=== PATIENT | female | born 1990 | race Caucasian/White ===

== ENCOUNTER 2016-11-09 12:37 | Emergency (ER) | payer OTHER ==
[2016-11-09 13:00] VITALS: BP 118/78
[2016-11-09] MEDS ORDERED: Ibuprofen TAB* 400 MG PO ONE (13:22)
--- NOTE | 2016-11-09 13:32 | UC ---
FLU HPI - HPI Summary HPI Summary: FEVER COUGH AND BODY ACHES FOR TWO DAYS. NO FLU SHOT THIS YEAR. 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 - History of Current Complaint Chief Complaint: UCRespiratory Stated Complaint: FEVER,COUGH Time Seen by Provider: 11/09/16 13:14 Hx Obtained From: Patient Hx Last Menstrual Period: does not get Onset/Duration: Sudden Onset, Lasting Days, Still Present Severity Currently: Moderate Severity Initially: Moderate Associated Signs & Symptoms: Positive: Fever, F/C, Myalgia, Cough, Sore Throat, Nasal Congestion Related Hx: Possible Flu/Infectious Exposure - Allergy/Home Medications Allergies/Adverse Reactions: Allergies Allergy/AdvReac Type Severity Reaction Status Date / Time Minocycline Allergy Intermediate Hives Verified 11/09/16 13:00 PMH/Surg Hx/FS Hx/Imm Hx Previously Healthy: Yes - Surgical History Surgical History: Yes Surgery Procedure, Year, and Place: APPENDECTOMY - Family History Known Family History: Positive: None Negative: Cardiac Disease, Respiratory Disease Family History: no cadiac issues in family lineage - Social History 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 Lives: With Family Alcohol Use: Occasionally Substance Use Type: None Smoking Status (MU): Never Smoked Tobacco Review of Systems Constitutional: Fever, Chills, Fatigue Skin: Negative Eyes: Negative ENT: Sore Throat, Ear Ache, Nasal Discharge Respiratory: Cough Cardiovascular: Negative Gastrointestinal: Negative Genitourinary: Negative Motor: Negative Neurovascular: Negative Musculoskeletal: Negative Neurological: Negative Psychological: Negative All Other Systems Reviewed And Are Negative: Yes Physical Exam Triage Information Reviewed: Yes Appearance: No Pain Distress, Well-Nourished, Ill-Appearing - MILD Vital Signs: Initial Vital Signs Temp 99.9 F 11/09/16 12:57 Pulse 136 11/09/16 12:57 Resp 24 11/09/16 12:57 BP 118/78 11/09/16 12:57 Pulse Ox 100 11/09/16 12:57 Vital Signs Reviewed: Yes Eye Exam: Normal Eyes: Positive: Conjunctiva Clear ENT Exam: Normal ENT: Positive: Normal ENT inspection, Hearing grossly normal, Pharynx normal, TMs normal Dental Exam: Normal Neck exam: Normal Neck: Positive: Supple, Nontender, No Lymphadenopathy Respiratory Exam: Normal Respiratory: Positive: Chest non-tender, Lungs clear, Normal breath sounds, No respiratory distress, No accessory muscle use Cardiovascular Exam: Normal Cardiovascular: Positive: RRR, No Murmur, Pulses Normal Abdominal Exam: Normal Abdomen Description: Positive: Nontender, No Organomegaly Musculoskeletal Exam: Normal Neurological Exam: Normal Psychological Exam: Normal Psychological: Positive: Normal Response To Family Skin Exam: Normal Flu Course/Dx - Differential Dx/Diagnosis Differential Diagnosis/HQI/PQRI: Influenza, Upper Respiratory Infection Provider Diagnoses: INFLUENZA A Discharge - Discharge Plan Condition: Stable Disposition: HOME Prescriptions: Oseltamivir CAP* [Tamiflu CAP*] 75 mg PO BID #10 cap Patient Education Materials: Influenza (ED) Forms: *Work Release Referrals: [facility] [Outside] Non Staff,Doctor [Primary Care Provider] -
== END 2016-11-09 13:32 | disposition home or self-care (01) ==
LOC: UCCORT 12:37
DX: J09.X2 Influenza due to identified novel influenza A virus with other respiratory manifestations (principal); Z88.1 Allergy status to other antibiotic agents
CPT/HCPCS: 87502; 99212; A9270-GY; G0463

== ENCOUNTER 2017-01-22 18:21 | Emergency (ER) | payer OTHER ==
[2017-01-22 19:27] VITALS: BP 116/74
--- NOTE | 2017-01-22 19:33 | UC ---
Complaint Female HPI - HPI Summary HPI Summary: Dysuria, frequency, urgency, hematuria starting at 0300 today. Hx of UTIs, this feels just like it. - History Of Current Complaint Chief Complaint: UCGU Stated Complaint: URINARY Time Seen by Provider: 01/22/17 19:18 Hx Obtained From: Patient Hx Last Menstrual Period: DOES NOT HAVE REGULAR PERIODS, HAS MRKG ?: No Onset/Duration: Sudden Onset, Lasting Hours Timing: Constant Severity Initially: Moderate Severity Currently: Moderate Radiates to: low back Character: Burning, Cramping Aggravating Factor(s): Urination Associated Signs And Symptoms: Positive: Negative - Allergies/Home Medications Allergies/Adverse Reactions: Allergies Allergy/AdvReac Type Severity Reaction Status Date / Time Minocycline Allergy Intermediate Hives Verified 01/22/17 19:18 Home Medications: Home Medications Phenazopyridine HCl [Azo Urinary Pain Relief] 95 mg PO PRN 01/22/17 [History] PMH/Surg Hx/FS Hx/Imm Hx Previously Healthy: Yes - Surgical History Surgical History: Yes Surgery Procedure, Year, and Place: APPENDECTOMY - Family History Known Family History: Positive: None Negative: Cardiac Disease, Respiratory Disease Family History: no cadiac issues in family lineage - Social History Alcohol Use: Occasionally Substance Use Type: None Smoking Status (MU): Never Smoked Tobacco Review of Systems Constitutional: Negative Skin: Negative Eyes: Negative ENT: Negative Respiratory: Negative Cardiovascular: Negative Gastrointestinal: Negative Genitourinary: Dysuria, Hematuria, Frequency, Urgency Motor: Negative Neurovascular: Negative Musculoskeletal: Negative Neurological: Negative Psychological: Negative All Other Systems Reviewed And Are Negative: Yes Physical Exam Triage Information Reviewed: Yes Appearance: Well-Appearing, No Pain Distress, Obese Vital Signs: Initial Vital Signs Temp 97.9 F 01/22/17 19:20 Pulse 99 01/22/17 19:20 Resp 17 01/22/17 19:20 BP 116/74 01/22/17 19:20 Pulse Ox 98 01/22/17 19:20 Vital Signs Reviewed: Yes Eye Exam: Normal Eyes: Positive: Conjunctiva Clear ENT Exam: Normal ENT: Positive: Normal ENT inspection, Hearing grossly normal, Pharynx normal, TMs normal Dental Exam: Normal Neck exam: Normal Neck: Positive: Supple, Nontender, No Lymphadenopathy Respiratory Exam: Normal Respiratory: Positive: Chest non-tender, Lungs clear, Normal breath sounds, No respiratory distress, No accessory muscle use Cardiovascular Exam: Normal Cardiovascular: Positive: RRR, No Murmur Abdomen Description: Negative: CVA Tenderness (R), CVA Tenderness (L) Musculoskeletal Exam: Normal Neurological Exam: Normal Neurological: Positive: Alert Psychological Exam: Normal Skin Exam: Normal Complaint Female Dx - Differential Dx/Diagnosis Provider Diagnoses: UTI Discharge - Discharge Plan Condition: Stable Disposition: HOME Prescriptions: Nitrofurantoin Monohyd Macro [Macrobid] 100 mg PO BID #10 cap Patient Education Materials: Urinary Tract Infection in Women (ED) Referrals: Non Staff,Doctor [Primary Care Provider] -
== END 2017-01-22 19:40 | disposition home or self-care (01) ==
LOC: UCCORT 18:21
DX: N39.0 Urinary tract infection, site not specified (principal); R31.9 Hematuria, unspecified; Z87.440 Personal history of urinary (tract) infections; Z88.1 Allergy status to other antibiotic agents; E66.9 Obesity, unspecified
CPT/HCPCS: 81003; 87086; 99212; G0463

== ENCOUNTER 2017-03-01 15:42 | Emergency (ER) | payer SELFPAY ==
[2017-03-01] MEDS ORDERED: Ibuprofen TAB* 600 MG PO ONE (16:36)
[2017-03-01] MEDS ORDERED: Lidocaine 2% PF * 5 ML VIAL INJ ONE (16:36)
--- NOTE | 2017-03-01 16:42 | UC ---
Laceration HPI - HPI Summary HPI Summary: patient cut herself with an exacto knife doing a craft on the palm of the left hand, 4 cm cut - History Of Current Complaint Stated Complaint: LEFT HAND LAC Time Seen by Provider: 03/01/17 16:32 Hx Obtained From: Patient Laceration Location: Hand Mechanism Of Injury: Sharp Trauma Onset/Duration: Sudden Onset, Lasting Hours Severity: Severe Aggravating Factors: Position, Movement - Allergies/Home Medications Allergies/Adverse Reactions: Allergies Allergy/AdvReac Type Severity Reaction Status Date / Time Minocycline Allergy Intermediate Hives Verified 03/01/17 16:50 PMH/Surg Hx/FS Hx/Imm Hx Previously Healthy: Yes - Surgical History Surgical History: Yes Surgery Procedure, Year, and Place: APPENDECTOMY - Family History Known Family History: Positive: None Negative: Cardiac Disease, Respiratory Disease Family History: no cadiac issues in family lineage - Social History Alcohol Use: Occasionally Substance Use Type: None Smoking Status (MU): Never Smoked Tobacco Review of Systems Constitutional: Negative Skin: Other - laceration Eyes: Negative ENT: Negative Respiratory: Negative Cardiovascular: Negative Gastrointestinal: Negative Genitourinary: Negative Motor: Negative Neurovascular: Negative Musculoskeletal: Negative Neurological: Negative Psychological: Negative All Other Systems Reviewed And Are Negative: Yes Physical Exam Triage Information Reviewed: Yes Appearance: Well-Appearing, Well-Nourished, Pain Distress Vital Signs Reviewed: Yes Eye Exam: Normal Eyes: Positive: Conjunctiva Clear ENT Exam: Normal ENT: Positive: Hearing grossly normal, Pharynx normal, TMs normal Dental Exam: Normal Neck exam: Normal Neck: Positive: Supple, Nontender, No Lymphadenopathy Respiratory Exam: Normal Respiratory: Positive: Chest non-tender, Lungs clear, Normal breath sounds Cardiovascular Exam: Normal Cardiovascular: Positive: RRR, No Murmur, Pulses Normal Abdominal Exam: Normal Abdomen Description: Positive: Nontender, No Organomegaly, Soft Bowel Sounds: Positive: Present Musculoskeletal Exam: Normal Musculoskeletal: Positive: Strength Intact, ROM Intact, No Edema Neurological Exam: Normal Neurological: Positive: Alert, Muscle Tone Normal Psychological: Positive: Other: - anxoius Skin: Positive: Other - 4 cm laceration of the thenar eminence, Laceration Repair - Laceration Repair 1 Description: Linear : No Repair Necessary Laceration Size After Repair: Length (cm) - 4 cm Modified For Repair: No Type Injection: Local Anesthesia Used: 2.0% Lido Irrigation With Pressure Irrigation Device: Yes Closure Material: Sutures - 4 Closure Method: Single Layer Suture Of: Skin Laceration Course/Dx - Course/Dx Course Of Treatment: hx obtained, exam performed, meds reviewed, pain med given , wound irrigated, sutured and dressed, tetanus given - Differential Dx - Laceration/Wound Differental Diagnoses: Laceration Provider Diagnoses: 4 cm laceration to the left hand Discharge - Discharge Plan Condition: Stable Disposition: HOME Patient Education Materials: Care For Your Stitches (ED), Finger Laceration (ED ) Additional Instructions: 1. keep the area clean and dry, 2. wear the splint for support and protection 3. Continue with ibuprofen for pain 4. keep elevated at rest 5. follow up in 10 days for removal, sooner with any signs of infection. redness , swelling, fever, or unusual drainage.
[2017-03-01] MEDS ORDERED: Tetan/Diph/Pertus SYR(Tdap)* 0.5 ML SYR(BOOSTRIX) use SYR IM ONE (16:53)
== END 2017-03-01 17:45 | disposition home or self-care (01) ==
LOC: UCCORT 15:42
DX: S61.412A Laceration without foreign body of left hand, initial encounter (principal); W26.0XXA Contact with knife, initial encounter; Y93.9 Activity, unspecified; Y92.9 Unspecified place or not applicable; Z23 Encounter for immunization; Z88.1 Allergy status to other antibiotic agents
CPT/HCPCS: 90471; 90715; 99213; A9270-GY; G0463

== ENCOUNTER 2017-03-12 16:31 | Emergency (ER) | payer OTHER ==
[2017-03-12 16:48] VITALS: BP 117/72
--- NOTE | 2017-03-12 17:08 | UC ---
HPI Wound/Suture Re-check - HPI Summary HPI Summary: FOUR SUTURES IN LEFT HAND FROM INJURY WITH DIE STAMPER 03/01/17 - History Of Current Complaint Chief Complaint: UCGeneralIllness Stated Complaint: STITCHES REMOVAL Time Seen by Provider: 03/12/17 16:33 Hx Obtained From: Patient Onset/Duration: Sudden Onset, Lasting Weeks, Still Present Severity: Mild - Allergies/Home Medications Allergies/Adverse Reactions: Allergies Allergy/AdvReac Type Severity Reaction Status Date / Time Minocycline Allergy Intermediate Hives Verified 03/12/17 16:35 Home Medications: Home Medications NK [No Home Medications Reported] 03/12/17 [History Confirmed 03/12/17] PMH/Surg Hx/FS Hx/Imm Hx Previously Healthy: Yes - Surgical History Surgical History: Yes Surgery Procedure, Year, and Place: APPENDECTOMY - Family History Known Family History: Positive: None Negative: Cardiac Disease, Respiratory Disease Family History: no cadiac issues in family lineage - Social History Occupation: Employed Full-time Lives: With Family Alcohol Use: Occasionally Substance Use Type: None Smoking Status (MU): Never Smoked Tobacco - Immunization History Most Recent Influenza Vaccination: NONE Most Recent Tetanus Shot: 03/01/17 Most Recent Pneumonia Vaccination: N/A Review of Systems Constitutional: Negative Skin: Other - FOUR SUTURES LEFT HAND Eyes: Negative ENT: Negative Respiratory: Negative Cardiovascular: Negative Gastrointestinal: Negative Genitourinary: Negative Motor: Negative Neurovascular: Negative Musculoskeletal: Negative Neurological: Negative Psychological: Negative All Other Systems Reviewed And Are Negative: Yes Physical Exam Triage Information Reviewed: Yes Appearance: Well-Appearing, No Pain Distress, Well-Nourished Vital Signs: Initial Vital Signs Temp 98.8 F 03/12/17 16:35 Pulse 92 03/12/17 16:35 Resp 18 03/12/17 16:35 BP 117/72 03/12/17 16:35 Pulse Ox 98 03/12/17 16:35 Vital Signs Reviewed: Yes Eye Exam: Normal ENT Exam: Normal ENT: Positive: Normal ENT inspection, Hearing grossly normal, TMs normal Dental Exam: Normal Neck exam: Normal Neck: Positive: Supple, Nontender, No Lymphadenopathy Respiratory Exam: Normal Respiratory: Positive: Chest non-tender, Lungs clear, Normal breath sounds, No respiratory distress, No accessory muscle use Cardiovascular Exam: Normal Cardiovascular: Positive: RRR, No Murmur Abdominal Exam: Normal Musculoskeletal Exam: Normal Musculoskeletal: Positive: Strength Intact, ROM Intact Neurological Exam: Normal Psychological Exam: Normal Skin: Positive: Other - FOUR SUTURES LEFT HAND Course/Dx - Differential Dx - Laceration/Wound Differential Diagnoses: Suture Removal Provider Diagnoses: HEALING WOUND LEFT HAND; SUTURES REMOVED Discharge - Discharge Plan Condition: Stable Disposition: HOME Patient Education Materials: Stitches Removal (ED) Referrals: Non Staff,Doctor [Primary Care Provider] - Images Hands: 1 - FOUR SUTURES HERE
== END 2017-03-12 17:12 | disposition home or self-care (01) ==
LOC: UCCORT 16:31
DX: S61.412D Laceration without foreign body of left hand, subsequent encounter (principal); W26.0XXD Contact with knife, subsequent encounter; Y92.9 Unspecified place or not applicable; Z88.1 Allergy status to other antibiotic agents